=== PATIENT | male | born 1950 | race Asian ===

== ENCOUNTER 2022-10-28 22:30 | Emergency (ER) | payer OTHER ==
[~2022-10-28] VITALS: Ht 175.3 cm; Wt 77.1 kg
[2022-10-28 23:19] LABS: PLATELET COUNT 139 K/uL (142-355)
[2022-10-28 23:39] LABS: POTASSIUM 3.6 mmol/L (3.6-5.2)
[2022-10-29] MEDS ORDERED: AMLODIPINE PO (06:40)
[2022-10-29] MEDS ORDERED: TYLENOL325 MG PO (06:40)
[2022-10-29] MEDS ORDERED: ASPIRIN PO (06:41)
[2022-10-29] MEDS ORDERED: CLOP75TA2 PO (06:42)
[2022-10-29] MEDS ORDERED: LIPITOR40 MG PO (06:42)
[2022-10-29] MEDS ORDERED: DOK100 MG PO (06:43)
[2022-10-29] MEDS ORDERED: DIVALPROEX500 M1 PO (06:43)
[2022-10-29] MEDS ORDERED: HALO5INJ3 IM (06:44)
[2022-10-29] MEDS ORDERED: HYDRALAZINE HY100 MG PO (06:45)
[2022-10-29] MEDS ORDERED: INSULIN GL100 UNIT/M SC (06:45)
[2022-10-29] MEDS ORDERED: ISOS20TA11 PO (06:46)
[2022-10-29] MEDS ORDERED: NOVOLOG100 UNIT/M (06:48)
[2022-10-29] MEDS ORDERED: QUETIAPINE200 MG PO (06:48)
[2022-10-29] MEDS ORDERED: TORSEMIDE20 MG PO (06:49)
[2022-10-29] MEDS ORDERED: HYDR25CA25 PO (06:50)
== END 2022-10-29 01:10 | disposition other institution (70) ==
LOC: ED 22:30
PROVIDERS: Family Medicine
DX: F29 Unspecified psychosis not due to a substance or known physiological condition (principal); Z02.79 Encounter for issue of other medical certificate
CPT/HCPCS: 36415; 80053; 81002; 85027; 87635; 93005; 99283; U0003